=== PATIENT | male | born 1945 | race Caucasian/White ===

== ENCOUNTER 2017-11-12 05:55 | Inpatient (IN) | payer OTHER ==
[~2017-11-12] VITALS: Ht 167.6 cm; Wt 108.4 kg
[~2017-11-12 05:55] MED LIST: BUDE1AER IH; OMEP40EC1 PO
[2017-11-12 05:57] VITALS: BP 159/80
--- NOTE | 2017-11-12 06:09 | NUR ---
Patient ambulated to bed 11. RN evaluating patient at bedside.
--- NOTE | 2017-11-12 06:15 | NUR ---
71Y M BIB FAMILY C/O SOB/CP SINCE 0400 THIS MORNING. PT STATES CP RADIATED THROUGHOUT BODY WITH CHILLS. BREATH SOUNDS ARE WHEEZES BILAT. PT O2SAT 96% RA. PT AAOX4. PT DENIES ANY N/V/D.
--- NOTE | 2017-11-12 07:18 | NUR ---
Pt report given to PETE KU . Transfer of care at this time. Addendum: 11/12/17 at 0832 by [facility] GOT REPORT FROM KINGS RUBIN.
[2017-11-12] MEDS ORDERED: ALBUTEROL SULFATE/IPRATROPIU 3 ML SOL IH ONE (07:20)
[2017-11-12] MEDS ORDERED: NACL 0.9% 500 ML IV ONE (07:20)
--- NOTE | 2017-11-12 07:41 | NUR ---
ASSUMED CARE, PT LAYING DOWN IN BED WITH SOB AND AUDIBLE WHEEZES, AT BEDSIDE. OCCASIONAL CHILD CARE COORDINATOR COUGH HEARD. PT REPORTS INTERMITTENT FEVERS/CHILLS. SEEN AT [facility]RGENT [facility]ARE [facility] FOR SAME THING, RECEIVED MEDS, BUT NOT GETTING ANY BETTER. PT INSTRUCTED TO SIT UPRIGHT TO HELP WITH SOB, MILD DIFFICULTY NOTED. ON RA @96-97%, DR WATKINS IN ROOM FOR EXAM. ORDESR RECEIVED.
[2017-11-12 08:08] LABS: BASOPHILS # (AUTO) 0.3 K/uL (0.00-0.22); BASOPHILS % (AUTO) 2.9 % (0.0-2.0); EOSINOPHILS # (AUTO) 0.1 K/uL (0-0.4); EOSINOPHILS % (AUTO) 0.7 % (0.0-4.0); HEMATOCRIT 44.9 % (36-52); HEMOGLOBIN 15.2 g/dL (12.0-18.0); LYMPHOCYTES # (AUTO) 0.3 K/uL (2.0-11.5); LYMPHOCYTES % (AUTO) 3.5 % (20.5-51.1); MEAN CORPUSCULAR HEMOGLOBIN 31 pg (27-31); MEAN CORPUSCULAR HGB CONC 34 g/dL (33-37); MEAN CORPUSCULAR VOLUME 91 fL (80-94); MONOCYTES # (AUTO) 0.4 K/uL (0.8-1.0); MONOCYTES % (AUTO) 4.9 % (1.7-9.3); NEUTROPHILS # (AUTO) 7.9 K/uL (1.8-7.7); PLATELET COUNT (AUTO) 100 K/uL (140-450); RED BLOOD CELL COUNT(AUTO) 4.91 MIL/uL (4.20-6.10); RED CELL DISTRIBUTION WIDTH 13.5 % (11.6-13.7)
[2017-11-12 08:22] LABS: ANION GAP 11.8 (8-16); CARBON DIOXIDE 27.2 mmol/L (21-32); CHLORIDE 104 mmol/L (98-107); CREATININE 1.1 mg/dL (0.7-1.3); GLUCOSE 113 mg/dL (74-106); SODIUM SERUM 139 mmol/L (136-145); UREA NITROGEN, BLOOD 11 mg/dL (7-18)
[2017-11-12 08:24] LABS: PROTHROMBIN TIME 10.5 secs (10.8-13.4)
--- NOTE | 2017-11-12 08:24 | NUR ---
IV LFUIDS INFUSING WELL, URINE COLLECTED AND SENT
[2017-11-12] MEDS ORDERED: KETOROLAC 30 MG/ML VIAL IVP ONE (08:25)
[2017-11-12] MEDS ORDERED: ASPIRIN 81 MG TAB.CHEW PO ONE (08:25)
[2017-11-12 08:34] LABS: ALBUMIN 3.7 g/dL (3.4-5.0); ASPARTATE AMINOTRANSFERASE 24 U/L (15-37); TOTAL BILIRUBIN 0.6 mg/dL (0.0-1.0)
--- NOTE | 2017-11-12 08:50 | NUR ---
Patient being reevaluated by physician at bedside.
[2017-11-12] MEDS ORDERED: PIPERACILLIN/TAZOBACTAM 3.375 GM in DEXTROSE 5% 50 ML IV ONE (09:20)
[2017-11-12] MEDS ORDERED: PIPERACILLIN/TAZOBACTAM 3.375 GM VIAL IV ONE (09:43)
--- NOTE | 2017-11-12 09:50 | NUR ---
IV ANBX STARTED ORDERED VIA PUMP, WILL MONITOR FOR ANY ADVERSE SIDE EFFCTS. PT REPORTS FEELING BETTER FROM HEADACHE, DENIES ANY CP AT THIS TIME.
--- NOTE | 2017-11-12 10:54 | NUR ---
Haydee kerr in ED - 11/12/17 at 1200 by [facility] WATERY STOOL X 1 EPISODE.
[2017-11-12] MEDS ORDERED: HYDROcodone/APAP 5/325 MG 1 TAB TAB PO PRN (11:05)
[2017-11-12] MEDS ORDERED: ACETAMINOPHEN 325 MG TAB PO PRN (11:05)
[2017-11-12] MEDS ORDERED: LORazepam 2 MG/ML VIAL IVP PRN (11:05)
[2017-11-12] MEDS ORDERED: ONDANSETRON 4 MG/2 ML VIAL IVP PRN (11:05)
--- NOTE | 2017-11-12 11:40 | NUR ---
Patient will be admitted to care of DR SHAW. Admited to ICU . Will go to room. Belongings list completed. Report to .
[2017-11-12] MEDS: HYDROcodone/APAP 5/325 MG 1 TAB TAB PO PRN (11:53)
[2017-11-12 12:00] VITALS: BP 134/83
--- NOTE | 2017-11-12 12:00 | NUR ---
RECEIVED PT FROM ER AT 1140 VIA [employer]. PT IS AWAKE, ALERT AND ORIENTED X4, VERBALLY RESPONSIVE, ABLE TO FOLLOW THE COMMANDS. PT IS ON 2L/M OXYGEN VIA NS,94% O2 SAT,T 100.4, P 94, R 26, BP 130/69. BILATERAL LUNGS SOUND WHEEZING. ACTIVE BOWEL SOUND FROM ALL 4 QUADS. PERIPHERAL LINE ON RIGHT ANTECUBITAL 20G WITH LOCKED. SKIN IS INTACT. INTERMITTENT PRODUCTIVE COUGH NOTED. BILATERAL NARES SWAB FOR MRSA SCREEN. PT COMPLAINS ABOUT PAIN WHEN HE COUGH 8/10. ADMINISTERED PRN NORCO 5/325MG 2 TABS ORDERED, TOLERATED WELL. CALL LIGHT WITHIN THE REACH. ALL SAFETY MEASURE IN PLACE. WILL CONTINUE TO MONITOR.
--- NOTE | 2017-11-12 12:30 | NUR ---
GIVEN SCHEDULED IV ABX AND PRN NORCO 5/325MG 2TAB FOR PAIN AND FEVER,TOLERATED WELL. NO ACUTE DISTRESS NOTED AT THIS TIME.
[2017-11-12] MEDS: methylPREDNISolone SS 40 MG/ML VIAL IVP SCH ×2 (12:57→20:55)
[2017-11-12] MEDS: LEVOFLOXACIN 500 MG/D5W PREMIX 100 ML IV SCH (12:58)
[2017-11-12] MEDS ORDERED: methylPREDNISolone SS 40 MG in WATER STERILE 1 ML IV SCH (13:00)
[2017-11-12] MEDS: IPRATROPIUM 0.02% 0.5 MG/2.5 ML NEBU INH SCH ×2 (13:13→18:58)
[2017-11-12] MEDS: ALBUTEROL 0.083% 2.5 MG/3 ML NEBU INH SCH ×2 (13:13→18:59)
--- NOTE | 2017-11-12 13:30 | NUR ---
ADMINISTERED SCHEDULED IV ABX, TOLERATED WELL. PT'S TEMP 99.4. NO ACUTE DISTRESS NOTED. WILL CONTINUE TO MONITOR.
--- NOTE | 2017-11-12 13:35 | NUR ---
PT RESTING COMFORTABLY. NO SOB OR OTHER ACUTE DISTRESS NOTED AT THIS TIME. VITAL SIGNS STABLE. NO C/O PAIN OR DISCOMFORT. SAFETY PRECAUTIONS IN PLACE. WILL CONTINUE TO MONITOR.
[2017-11-12] MEDS: PROMETH/CODEINE 6.25-10MG/5ML 5 ML UDC PO PRN ×2 (15:07→20:55)
--- NOTE | 2017-11-12 15:10 | NUR ---
PT IS IN ASLEEP. DENIES ANY PAIN. ADMINISTERED COUGH SYRUP, TOLERATED WELL. NO ACUTE DISTRESS NOTED. DENIES ANY PAIN. WILL CONTINUE TO MONITOR.
[2017-11-12 16:00] VITALS: BP 139/86
[2017-11-12 16:28] LABS: APPEARANCE,URINE SL CLOUDY (CLEAR); BILIRUBIN,URINE NEGATIVE (NEGATIVE); BLOOD, URINE 3+ (NEGATIVE); COLOR,URINE YELLOW (YELLOW); LEUKOCYTE ESTERASE ,URINE NEGATIVE (NEGATIVE); NITRITE, URINE NEGATIVE (NEGATIVE); PH,URINE 6.5 (5.0-9.0); UGLUCOSE NEGATIVE (NEGATIVE)
[2017-11-12] MEDS ORDERED: PANTOPRAZOLE 40 MG TABEC PO SCH (16:30)
[2017-11-12] MEDS ORDERED: NON-FORMULARY ITEM (Omeprazole* (Prilosec*) 20 MG) PO SCH (16:30)
--- NOTE | 2017-11-12 16:30 | NUR ---
ADMINISTERED SCHEDULED MEDICATION ORDERED, TOLERATED WELL. NO ACUTE DISTRESS NOTED. ALL SAFETY PRECAUTION IN PLACE. CALL LIGHT WITHIN REACH. WILL CONTINUE TO MONITOR.
[2017-11-12 16:38] LABS: RBC,URINE >100 /HPF (0-5); WBC,URINE 0-5 (RARE) /HPF (0-5)
--- NOTE | 2017-11-12 18:00 | NUR ---
TRANSFERRED TO [address] VIA W/C. REPORT GIVEN TO KINGS RODRIGUEZ. PT'S VS IS STABLE, NO ACUTE DISTRESS NOTED DURING TRANSFER. Addendum: 11/12/17 at 1855 by Domonique Higuera RN NOT [facility] [place] [place]
--- NOTE | 2017-11-12 18:01 | NUR ---
PATIENT TRANSFERRED FROM ICU TO TELE. PATIENT SITTING UP FOR DINNER. NO S/S OF ACUTE DISTRESS. ON O2 2L NC.
--- NOTE | 2017-11-12 18:59 | NUR ---
PATIENT TRANSFERRED FROM ICU AND HIS NAME AND MEDICATIONS ARE NOT IN [facility] YET
--- NOTE | 2017-11-12 19:10 | NUR ---
SBAR REPORT GIVEN TO RN AT BEDSIDE. NO S/S OF ACUTE DISTRESS NOTED. AT BEDSIDE.
--- NOTE | 2017-11-12 19:11 | NUR ---
RECEIVED HANDOFF REPORT FROM AM RN. PATIENT A&OX4. PATIENT DENIES PAIN.PATIENT STATES HAVING COUGH AND A HEADACHE. WILL MEDICATE ORDERED. IV SITE PATENT AND INTACT. PATIENT HAS TELE BOX IN PLACE. PATIENT ON 2L O2 NC. NO SIGNS OR SYMPTOMS OF ACUTE DISTRESS NOTED. AT BEDSIDE. WILL CONTINUE TO MONITOR.
--- NOTE | 2017-11-12 20:56 | NUR ---
PM MEDS GIVEN WITH EDUCATION. PATIENT VERBALIZED UNDERSTANDING. NO SIGNS OR SYMPTOMS OF ACUTE DISTRESS NOTED. CALL LIGHT WITHIN REACH. WILL CONTINUE TO MONITOR.
[2017-11-12] MEDS ORDERED: ALBUTEROL 0.083% 2.5 MG/3 ML NEBU INH PRN (21:50)
[2017-11-12] MEDS ORDERED: IPRATROPIUM 0.02% 0.5 MG/2.5 ML NEBU INH PRN (21:50)
[2017-11-13] VITALS: BP 121/71
[2017-11-13] MEDS: HYDROcodone/APAP 5/325 MG 1 TAB TAB PO PRN (00:41)
[2017-11-13] MEDS: IPRATROPIUM 0.02% 0.5 MG/2.5 ML NEBU INH SCH ×4 (00:46→18:45)
[2017-11-13] MEDS: ALBUTEROL 0.083% 2.5 MG/3 ML NEBU INH SCH ×4 (00:46→18:45)
[2017-11-13] MEDS ORDERED: NACL 0.9% 1,000 ML IV SCH (01:00)
[2017-11-13] MEDS: PROMETH/CODEINE 6.25-10MG/5ML 5 ML UDC PO PRN (05:45)
[2017-11-13] MEDS: PANTOPRAZOLE 40 MG TABEC PO SCH (05:46)
[2017-11-13] MEDS: methylPREDNISolone SS 40 MG/ML VIAL IVP SCH ×3 (05:46→20:05)
[2017-11-13 06:47] LABS: BASOPHILS % (AUTO) 0.5 % (0.0-2.0); EOSINOPHILS % (AUTO) 0.2 % (0.0-4.0); HEMATOCRIT 39.7 % (36-52); HEMOGLOBIN 13.9 g/dL (12.0-18.0); LYMPHOCYTES # (AUTO) 0.6 K/uL (2.0-11.5); LYMPHOCYTES % (AUTO) 8.7 % (20.5-51.1); MEAN CORPUSCULAR HEMOGLOBIN 32 pg (27-31); MEAN CORPUSCULAR HGB CONC 35 g/dL (33-37); MEAN CORPUSCULAR VOLUME 91 fL (80-94); MONOCYTES # (AUTO) 0.2 K/uL (0.8-1.0); MONOCYTES % (AUTO) 2.9 % (1.7-9.3); NEUTROPHILS # (AUTO) 6.6 K/uL (1.8-7.7); NEUTROPHILS % (AUTO) 87.7 % (42.2-75.2); PLATELET COUNT (AUTO) 94 K/uL (140-450); RED BLOOD CELL COUNT(AUTO) 4.36 MIL/uL (4.20-6.10); RED CELL DISTRIBUTION WIDTH 13.1 % (11.6-13.7); WHITE BLOOD COUNT (AUTO) 7.4 K/uL (4.8-10.8)
[2017-11-13 07:03] LABS: ALBUMIN 3.1 g/dL (3.4-5.0); ANION GAP 11.8 (8-16); ASPARTATE AMINOTRANSFERASE 34 U/L (15-37); CARBON DIOXIDE 25.5 mmol/L (21-32); CHLORIDE 104 mmol/L (98-107); GLUCOSE 149 mg/dL (74-106); MAGNESIUM 2.1 mg/dL (1.8-2.4); POTASSIUM 4.3 mmol/L (3.5-5.1); SODIUM SERUM 137 mmol/L (136-145); TOTAL BILIRUBIN 0.3 mg/dL (0.0-1.0); UREA NITROGEN, BLOOD 16 mg/dL (7-18)
--- NOTE | 2017-11-13 07:05 | NUR ---
BREATHING TX ADMINISTERED PT IS RESTING IN BED AT THIS TIME. PT IS NOT SOB AND NOT IN RESPIRATORY DISTRESS. WILL CONTINUE TO MONITOR.
--- NOTE | 2017-11-13 07:19 | NUR ---
ENDORSED PLAN OF CARE TO AM RN. PATIENT IN STABLE CONDITION.
--- NOTE | 2017-11-13 07:25 | NUR ---
ENDORSEMENT RECEIVED FROM RESOURCE TEACHER NURSE. PATIENT IS SLEEPING, EASILY AROUSABLE BY NAME. RESPIRATION EVEN, UNLABOR. SKIN DRY AND WARM. IV PATENT AND INTACT. DENIED PAIN, SOB AT THIS TIME. ON 2L NC. PLAN OF CARE WAS DISCUSSED WITH PATIENT. BED AT LOW POSITION, SIDES RAILS UP. CALL LIGHT WITHIN REACH.
[2017-11-13 08:00] VITALS: BP 113/72
[2017-11-13] MEDS: ENOXAPARIN 40 MG/0.4 ML SYR SUBQ SCH (08:30)
--- NOTE | 2017-11-13 09:12 | NUR ---
PATIENT HAS BEEN SCREENED AND CATEGORIZED MODERATE NUTRITION RISK. PATIENT WILL BE SEEN WITHIN 3-5 DAYS OF ADMISSION. 11/14/17-11/16/[address]
[2017-11-13] MEDS ORDERED: ATRN INH (09:56)
[2017-11-13] MEDS ORDERED: PRED10TA5 PO (09:56)
[2017-11-13] MEDS ORDERED: DOXY-441 PO (09:56)
[2017-11-13] MEDS ORDERED: CODE118S2 PO (09:56)
[2017-11-13] MEDS ORDERED: ALBU-71 NEB (09:56)
--- NOTE | 2017-11-13 10:30 | NUR ---
PATIENT'S LUNG SOUND WHEEZES ON EXPIRATION THROUGHOUT. CALLED AND NOTIFIED RT FOR BREATHING TREATMENT.
[2017-11-13] MEDS: PROMETH/CODEINE 6.25-10MG/5ML 5 ML UDC PO SCH ×2 (11:45→17:40)
--- NOTE | 2017-11-13 12:19 | NUR ---
RECEIVED A CALL FROM CUONG FROM [facility], [phone]. SHE SAID THE NEBULIZER WILL BE HANDLED BY [employer] [facility] BY RINA.
--- NOTE | 2017-11-13 12:30 | NUR ---
PATIENT IS AWAKE, ALERT. RESPIRATION EVEN, UNLABOR. DENIED PAIN, SOB AT THIS TIME. CALL LIGHT WITHIN REACH. WILL CONTINUE TO MONITOR
[2017-11-13] MEDS: LEVOFLOXACIN 500 MG/D5W PREMIX 100 ML IV SCH (12:55)
[2017-11-13 16:00] VITALS: BP 125/70
--- NOTE | 2017-11-13 16:00 | NUR ---
PATIENT IS AWAKE, ALERT. RESPIRATION EVEN, UNLABOR. DENIED PAIN, SOB. VS WAS TAKEN. CALL LIGHT WITHIN REACH
--- NOTE | 2017-11-13 18:00 | NUR ---
PATIENT IS AWAKE, ALERT. RESPIRATION EVEN, UNLABOR. LUNGS SOUND CLEAR. DENIED PAIN, SOB. IV PATENT AND INTACT. CALL LIGHT WITHIN REACH
--- NOTE | 2017-11-13 19:23 | NUR ---
ENDORSEMENT IS GIVEN TO THE SACK SORTER NURSE. PATIENT IS STABLE AT THIS TIME
--- NOTE | 2017-11-13 19:24 | NUR ---
RECEIVED HANDOFF REPORT FROM AM RN. PATIENT A&OX4. PATIENT DENIES PAIN. PATIENT IV SITE PATENT AND INTACT. SALINE LOCK. NO SIGNS OR SYMPTOMS OF ACUTE DISTRESS NOTED. RT IN TO SEE PATIENT. FAMILY AT BEDSIDE. CALL LIGHT WITHIN REACH. WILL CONTINUE TO MONITOR.
--- NOTE | 2017-11-13 20:33 | NUR ---
PM MEDS GIVEN WITH EDUCATION. PATIENT VERBALIZED UNDERSTANDING. CALL LIGHT WITHIN REACH. WILL CONTINUE TO MONITOR.
[2017-11-14] VITALS: BP 135/82
[2017-11-14] MEDS: PROMETH/CODEINE 6.25-10MG/5ML 5 ML UDC PO SCH ×2 (00:12→05:40)
[2017-11-14] MEDS: IPRATROPIUM 0.02% 0.5 MG/2.5 ML NEBU INH SCH ×2 (01:31→07:02)
[2017-11-14] MEDS: ALBUTEROL 0.083% 2.5 MG/3 ML NEBU INH SCH ×2 (01:31→07:02)
[2017-11-14] MEDS ORDERED: PNEUMOCOCCAL VACCINE 23 MCG/0.5 ML VIAL IMVAC PRN (01:35)
--- NOTE | 2017-11-14 01:42 | NUR ---
PATIENT RESTING IN BED. PATIENT DENIES PAIN. NO SIGNS OR SYMPTOMS OF ACUTE DISTRESS NOTED. CALL LIGHT WITHIN REACH. WILL CONTINUE TO MONITOR.
[2017-11-14] MEDS: methylPREDNISolone SS 40 MG/ML VIAL IVP SCH (05:40)
[2017-11-14] MEDS: PANTOPRAZOLE 40 MG TABEC PO SCH (05:41)
--- NOTE | 2017-11-14 05:42 | NUR ---
HEATING SYSTEMS INSTALLER MEDS GIVEN WITH EDUCATION. PATIENT VERBALIZED UNDERSTANDING. NO SIGNS OR SYMPTOMS OF ACUTE DISTRESS NOTED. CALL LIGHT WITHIN REACH. WILL CONTINUE TO MONITOR.
--- NOTE | 2017-11-14 07:15 | NUR ---
ENDORSED PLAN OF CARE TO AM RN. PATIENT IN STABLE CONDITION
--- NOTE | 2017-11-14 07:16 | NUR ---
RECEIVED REPORT FROM SONG AND DANCE PERFORMER NURSE VALERIE AT BEDSIDE FOR CONTINUITY OF CARE. PT IS AWAKE AND ORIENTED. INTRODUCED SELF AND UPDATED BOARD. PT IS SITTING UP IN BED. NO SIGNS OF DISTRESS. DENIES PAIN. IN STABLE CONDITION.
--- NOTE | 2017-11-14 07:21 | NUR ---
RECIVED PT ON 3LPM NC PT AWAKE ALERT WILL CONTINUE TO MONITOR PT
[2017-11-14 08:00] VITALS: BP 131/82
[2017-11-14] MEDS: ENOXAPARIN 40 MG/0.4 ML SYR SUBQ SCH (08:56)
--- NOTE | 2017-11-14 11:10 | NUR ---
PT D/C'D TO GO HOME. GAVE D/C FORMS, INSTRUCTION, RX, LABS, AND FOLLOW UP APPOINTMENT. PT VERBALIZED UNDERSTANDING AND SIGNED FORMS. D/C'D IV FROM LEFT FA 22G. IV CATHETER TIP INTACT. APPLIED DRESSING AND PRESSURE TO SITE. NO BLEEDING NOTED. REMOVED ID BAND. PT CHANGED IN OWN CLOTHES AND LEFT WITH ALL PERSONAL BELONGINGS AND RX. LEFT UNIT VIA AMBULATION WITH STEADY GAIT ACCOMPANIED BY . LEFT IN STABLE CONDITION.
--- NOTE | 2017-11-18 10:26 | NUR ---
PER REQUEST OF CUONG FROM [facility], FAXED DC SUMMARY AND DC MEDICATION RECONCILIATION LIST TO HER AT [phone] PHONE [phone]
== END 2017-11-14 11:10 | disposition home health service (06) | DRG 190 ==
LOC: MED 05:55 → MIC 11:08 → MTU 18:00
PROVIDERS: ADMIT Hospitalist; ATTEND Hospitalist
PROC: 3E0234Z Introduction of Serum, Toxoid and Vaccine into Muscle, Percutaneous Approach (ICD-10-PCS; principal; 2017-11-14)
DX: J44.0 Chronic obstructive pulmonary disease with (acute) lower respiratory infection (principal); J18.1 Lobar pneumonia, unspecified organism; J44.1 Chronic obstructive pulmonary disease with (acute) exacerbation; E66.9 Obesity, unspecified; F17.210 Nicotine dependence, cigarettes, uncomplicated; J40 Bronchitis, not specified as acute or chronic; Z68.38 Body mass index [BMI] 38.0-38.9, adult; Z23 Encounter for immunization; Z71.6 Tobacco abuse counseling
CPT/HCPCS: 36415; 71010; 71020; 80053; 81001; 83605; 83735; 83880; 84484; 85025; 85610; 85730; 87040; 87081; 90732; 94640; 96361; 96365; 96375; 99285; J0696; J1650; J1885; J1956; J2543; J2920; J7030; J7060; J7613; J7620; J7644; Q0092

== ENCOUNTER 2019-09-29 15:30 | Emergency (ER) | payer OTHER ==
[~2019-09-29] VITALS: Ht 167.6 cm; Wt 110.4 kg
[~2019-09-29 15:30] MED LIST changes: +ALBU-71 NEB; +ATRN INH; +CODE118S2 PO; +DOXY-441 PO; -OMEP40EC1 PO; +OMEP40EC24 PO; +PRED10TA5 PO
[2019-09-29 15:39] VITALS: BP 146/95
--- NOTE | 2019-09-29 15:47 | NUR ---
PT AMBULATED TO BED 4.
--- NOTE | 2019-09-29 15:50 | NUR ---
Dr. Ross is evaluating the patient at bedside.
[2019-09-29] MEDS ORDERED: NACL 0.9% 1,000 ML IV ONE (15:55)
[2019-09-29] MEDS ORDERED: KETOROLAC 30 MG/ML VIAL IVP ONE (15:55)
--- NOTE | 2019-09-29 15:57 | NUR ---
PATIENT PRESENTS TO ED FROM URGENT CARE FOR RT TESTICULAR PAIN X1 DAY. PT COMPLAINS OF 9/10 PAIN, MILDLY RELIEVED BY TYLENOL. PT ALSO EXPERIENCING FEVER, GIVEN TYLENOL AT 1505 IN URGENT CARE. PT FEBRILE AT 102.7 AT THIS TIME. PATIENT POSITIONED FOR COMFORT; HOB ELEVATED; BEDRAILS UP X2; BED DOWN. ER MD SAW PATIENT. MEDRX:BPH RX:TAMSULOSIN
--- NOTE | 2019-09-29 15:59 | NUR ---
CT AT BEDSIDE
[2019-09-29 16:38] LABS: BASOPHILS # (AUTO) 0.1 K/uL (0.00-0.22); BASOPHILS % (AUTO) 0.5 % (0.0-2.0); EOSINOPHILS # (AUTO) 0.1 K/uL (0-0.4); EOSINOPHILS % (AUTO) 0.4 % (0.0-4.0); HEMATOCRIT 46.3 % (36-52); HEMOGLOBIN 15.6 g/dL (12.0-18.0); LYMPHOCYTES # (AUTO) 1.1 K/uL (2.0-11.5); LYMPHOCYTES % (AUTO) 8.3 % (20.5-51.1); MEAN CORPUSCULAR HEMOGLOBIN 31 pg (27-31); MEAN CORPUSCULAR HGB CONC 34 g/dL (33-37); MONOCYTES # (AUTO) 1.2 K/uL (0.8-1.0); NEUTROPHILS # (AUTO) 11.1 K/uL (1.8-7.7); NEUTROPHILS % (AUTO) 81.8 % (42.2-75.2); PLATELET COUNT (AUTO) 132 K/uL (140-450); RED BLOOD CELL COUNT(AUTO) 5.09 MIL/uL (4.20-6.10); RED CELL DISTRIBUTION WIDTH 13.9 % (11.6-13.7); WHITE BLOOD COUNT (AUTO) 13.6 K/uL (4.8-10.8)
[2019-09-29 16:54] LABS: ANION GAP 12.4 (8-16); CARBON DIOXIDE 25.6 mmol/L (21-32); CHLORIDE 105 mmol/L (98-107); CREATININE 0.9 mg/dL (0.7-1.3); GLUCOSE 84 mg/dL (74-106); SODIUM SERUM 139 mmol/L (136-145); UREA NITROGEN, BLOOD 15 mg/dL (7-18)
[2019-09-29 17:00] LABS: ALBUMIN 3.8 g/dL (3.4-5.0); ASPARTATE AMINOTRANSFERASE 20 U/L (15-37); TOTAL BILIRUBIN 0.5 mg/dL (0.0-1.0)
[2019-09-29] MEDS ORDERED: AZITHROMYCIN 250 MG TAB PO ONE (17:40)
[2019-09-29] MEDS ORDERED: ACETAMINOPHEN EXTRA STRENGTH 500 MG TAB PO ONE (17:40)
[2019-09-29] MEDS ORDERED: cefTRIAXone 250 MG in LIDOCAINE MPF 1% 0.9 ML IM ONE (17:40)
[2019-09-29 17:49] LABS: APPEARANCE,URINE CLEAR (CLEAR); BLOOD, URINE NEGATIVE (NEGATIVE); COLOR,URINE YELLOW (YELLOW); UGLUCOSE NEGATIVE (NEGATIVE)
[2019-09-29 17:50] LABS: BILIRUBIN,URINE NEGATIVE (NEGATIVE); LEUKOCYTE ESTERASE ,URINE TRACE (NEGATIVE); NITRITE, URINE NEGATIVE (NEGATIVE)
[2019-09-29 17:52] LABS: RBC,URINE NONE SEEN /HPF (0-5); WBC,URINE 0-5 /HPF (0-5)
--- NOTE | 2019-09-29 18:15 | NUR ---
IV removed, catheter intact and site benign. Applied folded 4x4 gauze and tape to stop bleeding.
[2019-09-29 18:22] VITALS: BP 141/74
--- NOTE | 2019-09-29 18:22 | NUR ---
Patient discharged with v/s stable. Written and verbal after care instructions given and explained. Patient alert, oriented and verbalized understanding of instructions. Ambulatory with steady gait. All questions addressed prior to discharge. ID band removed. Patient advised to follow up with PMD. Rx of DOXYXYLINE AND TYLENOL given. Patient educated on indication of medication including possible reaction and side effects. Opportunity to ask questions provided and answered.
[2019-10-01 12:07] LABS: CHLAMYDIA TRACHOMATIS AMP DNA Equivocal (Negative)
== END 2019-09-29 18:19 | disposition home or self-care (01) ==
LOC: MED 15:30
DX: N45.2 Orchitis (principal); J44.9 Chronic obstructive pulmonary disease, unspecified; Z79.899 Other long term (current) drug therapy
CPT/HCPCS: 36415; 71045; 76870; 80053; 81001; 83605; 85025; 87040; 87086; 87491; 87804; 93005; 96372; 96374; 99284; J0696; J1885; J2001; J7030; Q0092

== ENCOUNTER 2019-10-01 10:29 | Inpatient (IN) | payer OTHER ==
[~2019-10-01] VITALS: Ht 170.2 cm; Wt 110.2 kg
[2019-10-01 10:31] VITALS: BP 153/79
--- NOTE | 2019-10-01 10:38 | NUR ---
PATIENT AMBULATED TO BED 4 AT THIS TIME.
--- NOTE | 2019-10-01 10:45 | NUR ---
73/M C/O PENILE PAIN/SWELLING WITH FEVER X YESTERDAY WAS SEEN HERE LAST NIGHT AND DIGNOSED WITH ORCHITIS AND GIVEN DOXCYCLINE AND TYLENOL PATIENT STATES SWELLING HAS WORSENED EVEN THOUGH HE HAS BEEN TAKING MEDICATIONS. STATES LAST NIGHT HAD SUBJECTIVE FEVER WITH DIAPHORESIS. NOTICED FOUL SMELLING PUS DRAINING FROM RT TESTICLE. DENIES N/V, ABD PAIN. LARGE RT TESTICLE NOTED WITH AN OPEN LESION ON POSTERIOR LESS THAN [id number] WITHOUT ACTIVE DRAINAGE AT THIS TIME. PMH- COPD, BPH
[2019-10-01] MEDS ORDERED: NACL 0.9% 1,000 ML IV SCH (11:24)
[2019-10-01] MEDS ORDERED: NACL 0.9% 1,000 ML IV ONE (11:24)
[2019-10-01] MEDS ORDERED: GENTAMICIN 80 MG in DEXTROSE 5% 100 ML IV ONE (11:25)
[2019-10-01] MEDS ORDERED: KETOROLAC 30 MG/ML VIAL IVP ONE (11:25)
[2019-10-01] MEDS ORDERED: MORPHINE SULFATE 2 MG/ML SYR IVP ONE (11:25)
[2019-10-01] MEDS ORDERED: CLINDAMYCIN 900 MG in DEXTROSE 5% 100 ML IV ONE (11:25)
[2019-10-01] MEDS ORDERED: GENTAMICIN 80 MG/2 ML VIAL ONE (11:43)
[2019-10-01] MEDS ORDERED: CLINDAMYCIN 900 MG/6 ML VIAL IV ONE (11:44)
[2019-10-01 12:24] LABS: BASOPHILS % (AUTO) 0.3 % (0.0-2.0); EOSINOPHILS # (AUTO) 0.1 K/uL (0-0.4); HEMATOCRIT 43.3 % (36-52); HEMOGLOBIN 14.4 g/dL (12.0-18.0); LYMPHOCYTES # (AUTO) 1.1 K/uL (2.0-11.5); LYMPHOCYTES % (AUTO) 10.9 % (20.5-51.1); MEAN CORPUSCULAR HEMOGLOBIN 31 pg (27-31); MEAN CORPUSCULAR HGB CONC 33 g/dL (33-37); MEAN CORPUSCULAR VOLUME 92.3 fL (80-94); MONOCYTES % (AUTO) 10.4 % (1.7-9.3); NEUTROPHILS # (AUTO) 7.5 K/uL (1.8-7.7); NEUTROPHILS % (AUTO) 77.4 % (42.2-75.2); PLATELET COUNT (AUTO) 122 K/uL (140-450); RED CELL DISTRIBUTION WIDTH 14.4 % (11.6-13.7); WHITE BLOOD COUNT (AUTO) 9.8 K/uL (4.8-10.8)
[2019-10-01 12:28] LABS: BILIRUBIN,URINE NEGATIVE (NEGATIVE); BLOOD, URINE NEGATIVE (NEGATIVE); COLOR,URINE YELLOW (YELLOW); LEUKOCYTE ESTERASE ,URINE TRACE (NEGATIVE); NITRITE, URINE NEGATIVE (NEGATIVE); PH,URINE 6.5 (5.0-9.0); UGLUCOSE NEGATIVE (NEGATIVE)
--- NOTE | 2019-10-01 12:30 | NUR ---
PT TO CT SCAN VIA W/C.
[2019-10-01 12:56] LABS: ANION GAP 9.6 (8-16); CARBON DIOXIDE 27.1 mmol/L (21-32); CHLORIDE 106 mmol/L (98-107); CREATININE 0.9 mg/dL (0.7-1.3); GLUCOSE 110 mg/dL (74-106); POTASSIUM 3.7 mmol/L (3.5-5.1); SODIUM SERUM 139 mmol/L (136-145); TOTAL BILIRUBIN 0.6 mg/dL (0.0-1.0); UREA NITROGEN, BLOOD 14 mg/dL (7-18)
[2019-10-01 12:57] LABS: ALBUMIN 3.2 g/dL (3.4-5.0); AMYLASE 52 U/L (25-115); ASPARTATE AMINOTRANSFERASE 23 U/L (15-37); LIPASE 139 U/L (73-393)
[2019-10-01 12:59] LABS: APPEARANCE,URINE HAZY (CLEAR)
[2019-10-01 13:02] LABS: RBC,URINE 0 /HPF (0-5); WBC,URINE 0-5 /HPF (0-5)
--- NOTE | 2019-10-01 13:48 | NUR ---
PT UNSURE ABOUT MED NAMES AND DOSE. WILL SEND FAMILY MEMBER HOME TO BRING BACK LIST.
[2019-10-01] MEDS ORDERED: TAMS0.4C96 PO (14:58)
--- NOTE | 2019-10-01 16:00 | NUR ---
Patient will be admitted to care of DR. MORENO. Admited to MED SURG. Will go to room 126B. Belongings list completed. Report to SORIN KU.
--- NOTE | 2019-10-01 16:00 | NUR ---
RECEIVED PT FROM ED NURSE NATALIE, PT IS AWAKE AND ALERT, NO S/S OF ACUTE DISTRESS, PT IS AMBULATORY AND ABLE TO MAKE NEEDS KNOWN. PT IS MOSTLY PASHTO SPEAKING. NO C/O PAIN AT THIS TIME. PT IS ON ROOM AIR. SMALL AREA OF OPEN SKIN NOTED ON THE L SIDE SCROTUM. IV NOTED L AC 22 G. LAST BM 10/01. PT HAD THE FLU VACCINE AUGUST 2019, AND WOULD LIKE THE PNA VACCINE UPON DC. MRSA NASAL SWAB TAKEN.
[2019-10-01 16:15] VITALS: BP 127/75
[2019-10-01] MEDS ORDERED: ZOLPIDEM 5 MG TAB PO PRN (17:00)
[2019-10-01] MEDS ORDERED: ALBUTEROL 0.083% 2.5 MG/3 ML NEBU INH PRN (17:00)
[2019-10-01] MEDS ORDERED: ONDANSETRON 4 MG/2 ML VIAL IVP PRN (17:00)
[2019-10-01] MEDS ORDERED: POTASSIUM CHLORIDE 10 MEQ TABER PO PRN (17:00)
[2019-10-01] MEDS ORDERED: ALUMINUM HYD/MAG/SIMETHICONE 30 ML UDC PO PRN (17:00)
[2019-10-01] MEDS ORDERED: MAGNESIUM OXIDE 400 MG TAB PO PRN (17:00)
[2019-10-01] MEDS ORDERED: ACETAMINOPHEN 325 MG TAB PO PRN (17:00)
[2019-10-01] MEDS ORDERED: DOCUSATE SODIUM 250 MG GELCAP PO PRN (17:00)
[2019-10-01] MEDS ORDERED: MAG SULF 2000 MG/WATER PREMIX 50 ML IV PRN (17:00)
[2019-10-01] MEDS ORDERED: SODIUM PHOSPHATE 118 ML ENEM RC PRN (17:00)
[2019-10-01] MEDS ORDERED: LORazepam 2 MG/ML VIAL IVP PRN (17:00)
[2019-10-01] MEDS ORDERED: IPRATROPIUM 0.02% 0.5 MG/2.5 ML NEBU INH PRN (17:00)
[2019-10-01] MEDS ORDERED: BISACODYL 10 MG SUPP RC PRN (17:00)
[2019-10-01] MEDS ORDERED: guaiFENesin DM 200/20 MG-10 ML 10 ML UDC PO PRN (17:00)
[2019-10-01] MEDS ORDERED: cloNIDine 0.1 MG TAB PO PRN (17:00)
[2019-10-01] MEDS ORDERED: diphenhydrAMINE 50 MG/ML VIAL IVP PRN (17:00)
[2019-10-01] MEDS ORDERED: ACETAMINOPHEN 650 MG SUPP RC PRN (17:00)
[2019-10-01] MEDS ORDERED: HYDROcodone/APAP 5/325 MG 1 TAB TAB PO PRN ×2 (17:00)
--- NOTE | 2019-10-01 18:30 | NUR ---
SCROTUM ANAEROBIC CULTURE SWABBED AND TAKEN TO LAB
[2019-10-01] MEDS ORDERED: CLINDAMYCIN 600 MG/4 ML VIAL ONE (19:03)
[2019-10-01] MEDS: CLINDAMYCIN 600 MG in DEXTROSE 5% 50 ML IV SCH (19:13)
--- NOTE | 2019-10-01 19:15 | NUR ---
IV CLEOCIN INFUSING AT THIS TIME
--- NOTE | 2019-10-01 19:25 | NUR ---
PT ENDORSED TO DINKEY ENGINE FIRER/FIREMAN NURSE IN STABLE CONDITION
--- NOTE | 2019-10-01 19:26 | NUR ---
RECEIVED PT ON BED, AAOX4, ABLE TO MAKE NEEDS KNOWN, TOLERABLE PAIN AT THIS TIME, WILL CALL WHEN PAIN GET WORST, IV CLEOCIN INFUSING WELL, PLAN OF CARE DISCUSSED, SAFETY MEASURES IN PLACE, CALL LIGHT WITHIN REACH.
[2019-10-01] MEDS: MORPHINE SULFATE 2 MG/ML SYR IVP PRN (20:50)
--- NOTE | 2019-10-01 20:50 | NUR ---
PT AMBULATED TO BR WITH STEADY GAIT, VOIDED FREELY, PT COMPLAINING OF PAIN, MEDICATED PRN WITH MORPHINE IVP, ALL NEEDS ATTENDED.
[2019-10-01] MEDS ORDERED: NON-FORMULARY ITEM (Budesonide/Formoterol Fumarate* (Symbicort 160-4.5 Mcg Inhaler*) 2 PUF IH SCH (21:00)
--- NOTE | 2019-10-01 21:04 | NUR ---
PT RECEIVED ON RA WITH SP02 95% AND CLEAR BREATH SOUNDS. NO RESPIRATORY DISTRESS NOTED. PRN TX NOT GIVEN. WILL CONTINUE TO MONITOR PT
--- NOTE | 2019-10-01 22:30 | NUR ---
ROUNDS MADE, SEEN PT SLEEPING, NO SIGNS OF DISTRESS, MONITORED CLOSELY.
[2019-10-02] VITALS: BP 125/67
[2019-10-02] MEDS ORDERED: CLINDAMYCIN 600 MG/4 ML VIAL ONE ×2 (00:05→06:25)
[2019-10-02] MEDS: CLINDAMYCIN 600 MG in DEXTROSE 5% 50 ML IV SCH ×4 (00:26→17:27)
--- NOTE | 2019-10-02 00:30 | NUR ---
PT SLEEPING, EASILY AROUSABLE, VITAL SIGNS STABLE, DENIES ANY PAIN, DUE CLEOCIN IVPB ADMINISTERED, CONTINUE TO MONITOR CLOSELY.
--- NOTE | 2019-10-02 03:20 | NUR ---
ROUNDS MADE, SEEN PT SLEEPING, NO SIGNS OF PAIN, IVF INFUSING WELL, MONITORED CLOSELY.
--- NOTE | 2019-10-02 06:46 | NUR ---
PATIENT HAS BEEN SCREENED AND CATEGORIZED LOW NUTRITION RISK. PATIENT WILL BE SEEN WITHIN 7 DAYS OF ADMISSION. 10/08/19 ALBERTA OLIVAS MS, RDN
--- NOTE | 2019-10-02 07:24 | NUR ---
PT AWAKE, NO SIGNS OF DISTRESS, REPORT GIVEN TO KINGS ABDULLAHI FOR CONTINUITY OF CARE.
--- NOTE | 2019-10-02 07:41 | NUR ---
RECEIVED BEDSIDE REPORT FROM PM RN PT APPEARS STABLE AND IN NO APPARENT DISTRESS. ALL SAFETY MEASURES ARE IN PLACE WILL CONTINUE TO MONITOR.
[2019-10-02] MEDS: TAMSULOSIN 0.4 MG CAP PO SCH (08:01)
[2019-10-02] MEDS: MORPHINE SULFATE 2 MG/ML SYR IVP PRN (08:02)
[2019-10-02 08:45] VITALS: BP 122/83
--- NOTE | 2019-10-02 09:13 | NUR ---
FREQUENT ROUNDING ON PT PT APPEARS STABLE AND IN NO APPARENT DISTRESS. ALL SAFETY MEASURES ARE IN PLACE WILL CONTINUE TO MONITOR.
--- NOTE | 2019-10-02 11:05 | NUR ---
FREQUENT ROUNDING ON PT PT APPEARS STABLE AND IN NO APPARENT DISTRESS. ALL SAFETY MEASURES ARE IN PLACE WILL CONTINUE TO MONITOR.
--- NOTE | 2019-10-02 11:06 | NUR ---
FREQUENT ROUNDING ON PT PT APPEARS STABLE AND IN NO APPARENT DISTRESS. ALL SAFETY MEASURES ARE IN PLACE WILL CONTINUE TO MONITOR.
--- NOTE | 2019-10-02 13:05 | NUR ---
FREQUENT ROUNDING ON PT PT APPEARS STABLE AND IN NO APPARENT DISTRESS. ALL SAFETY MEASURES ARE IN PLACE
--- NOTE | 2019-10-02 15:31 | NUR ---
FREQUENT ROUNDING ON PT PT APPEARS STABLE ALL SAFETY MEASURES ARE IN PLACE
[2019-10-02 16:52] VITALS: BP 131/75
--- NOTE | 2019-10-02 19:41 | NUR ---
ENDORSED PT TO PM RN PT APPEARS STABLE AND IN NO APPARENT DISTRESS. ALL SAFETY MEASURES ARE IN PLACE
--- NOTE | 2019-10-02 19:42 | NUR ---
RECEIVED ENDORSEMENT FROM AM SHIFT NURSE. PATIENT ALERT AND ORIENTED X 3. ABLE TO MAKE NEEDS KNOWN. PASHTO SPEAKING. NO APPARENT DISTRESS NOTED. WITH LEFT AC 22G RUNNING WITH IVF. BED ON LOW POSITION. WILL CONTINUE TO MONITOR.
--- NOTE | 2019-10-02 21:01 | NUR ---
PT RECEIVED ON RA WITH SP02 93% AND CLEAR BREATH SOUNDS. NO RESPIRATORY DISTRESS NOTED. PRN TX NOT GIVEN. PT INFORMED TO CALL RN IF EXPERIENCING SOB. WILL CONTINUE TO MONITOR PT
--- NOTE | 2019-10-02 21:40 | NUR ---
PATIENT ASLEEP IN BED. VISIBLE CHEST RISE AND FALL NOTED. NO APPARENT DISTRESS NOTED. WILL CONTINUE TO MONITOR.
--- NOTE | 2019-10-02 23:35 | NUR ---
PATIENT ASLEEP IN BED. VISIBLE CHEST RISE AND FALL NOTED. BED ON LOW POSITION. CALL LIGHT WITHIN REACH. NO APPARENT DISTRESS NOTED. WILL CONTINUE TO MONITOR.
[2019-10-03] VITALS: BP 123/64
[2019-10-03] MEDS: CLINDAMYCIN 600 MG in DEXTROSE 5% 50 ML IV SCH ×3 (00:49→13:48)
--- NOTE | 2019-10-03 01:30 | NUR ---
PATIENT ASLEEP IN BED. NO DISTRESS NOTED. BED ON LOW POSITION. WILL CONTINUE TO MONITOR.
--- NOTE | 2019-10-03 03:25 | NUR ---
PATIENT ASLEEP IN BED. NO APPARENT DISTRESS NOTED. WILL CONTINUE TO MONITOR.
--- NOTE | 2019-10-03 05:20 | NUR ---
PATIENT AWAKE IN BED, RESTING. NO APPARENT DISTRESS NOTED. BED ON LOW POSITION. CALL LIGHT WITHIN REACH. WILL CONTINUE TO MONITOR.
--- NOTE | 2019-10-03 06:54 | NUR ---
PATIENT AWAKE IN BED, RESTING. NO APPARENT DISTRESS NOTED. WILL CONTINUE TO MONITOR.
--- NOTE | 2019-10-03 07:20 | NUR ---
ENDORSED TO AM SHIFT NURSE IN STABLE CONDITION.
--- NOTE | 2019-10-03 07:22 | NUR ---
RECEIVED BEDSIDE REPORT FROM HARBOUR MASTER NURSE FOR CONTINUITY OF CARE. PATIENT IS AWAKE AND RESTING ON BED AT THIS TIME. PATIENT IS AAOX 4. RESPIRATION EVEN AND UNLABORED ON RA. DENIED PAIN, SOB AND DIZZINESS AT THIS TIME. NO SIGNS OF DISTRESS NOTED. IV ON LAC 22G, CLEAN AND INTACT, INFUSING PER MD ORDER. SCROTUM MINIMAL REDNESS,TIERRA, OTHERWISE SKIN CLEAN AND DRY. PATIENT IS CONTINENT AND ABLE TO AMBULATE WITH STEADY GAIT. DISCUSSED PLAN OF CARE WITH PATIENT ANT PATIENT SAID OK. SAFETY MEASURES IN PLACE. BED IN LOW POSITION AND CALL LIGHT WITHIN REACH. INSTRUCTED PATIENT TO USE THE CALL LIGHT FOR ANY ASSISTANCE AND PATIENT WAS AWARE.
[2019-10-03 08:00] VITALS: BP 135/77
[2019-10-03] MEDS: TAMSULOSIN 0.4 MG CAP PO SCH (09:43)
--- NOTE | 2019-10-03 09:43 | NUR ---
MEDICATION ADMINISTERED. NO COMPLICATIONS AT THIS TIME. TOLERATED WELL. SITTING AT BEDSIDE. BED IN LOW POSITION CALL LIGHT WITHIN REACH.
--- NOTE | 2019-10-03 11:14 | NUR ---
Grain Processor Assessment/Discharge Plan: Name: Oralia Villegas Home Relationship: Pre-Admission Living Arrangements: Lives with Other Other: Oralia Villegas Prior ADL Independent Current Home Health Name/Tel: N/A Current DME/02 Name/Tel: N/A Current Hospice Name/Tel: N/A Current Dialysis Name/Tel: N/A Healthcare Decision Maker: Patient Advance Directive No Information Taught: Advance Directive Person Taught: Patient Teaching Tools: Computer Generated Print Verbal Factors Affecting Learning: None Participation Level: Active Evaluation: Gestures Understanding Verbalizes Understanding Educator: MANNY Ureña Discipline: Case Mgt/Social Svcs Tentative Discharge Plan Summary: Patient is a 73 year old male admitted for pyelonephritis. I met with patient at bedside. Patient alert and oriented x4. Patient speaks Greenlandic. Patient lives at home with his Oralia Villegas and plans to return home upon discharge. Patient's pcp is [facility] and does not have any difficulty filling his prescriptions at pharmacy. Patient is independent with ADLs and does not use any DME at home. Patient drives to pcp's office. Patient denied hx of mental health. Patient also denied alcohol/substance abuse. Grain Processor and/or Pharmacogeneticist will follow up as needed. Signature: MANNY Ureña Date: Oct 03, 2019
--- NOTE | 2019-10-03 11:23 | NUR ---
PATIENT AWAKE AND RESTING ON BED AT THIS TIME. DENIED PAIN, SOB AND DIZZINESS. NO SIGNS OF DISTRESS NOTED. SAFETY MEASURES IN PLACE. BED IN LOW POSITION AND CALL LIGHT WITHIN REACH. INSTRUCTED PATIENT TO USE THE CALL LIGHT FOR ANY ASSISTANCE AND PATIENT WAS AWARE.
[2019-10-03] MEDS ORDERED: CLIN300C5 PO (11:26)
--- NOTE | 2019-10-03 11:45 | NUR ---
INFORMED PATIENT THAT HE WILL BE DC FROM HOSPITAL TODAY. PATIENT WAS AWARE AND WILL CONTACT FOR TAXONOMY TEACHER. PATIENT IS RESTING ON BED AT THIS TIME.NO SIGNS OF DISTRESS NOTED.
--- NOTE | 2019-10-03 13:48 | NUR ---
ADMINISTERED MED VIA IVPB PER MD ORDER, MED EDUCATION PROVIDED TO PATIENT AND PATIENT SAID OK. PATIENT AWAKE AND RESTING ON BED. PER PATIENT, HIS IS ON THE WAY TO PICK HIM AND MIGHT BE HERE AROUND 2PM. NO SIGNS OF DISTRESS NOTED. SAFETY MEASURES IN PLACE.
[2019-10-03] MEDS ORDERED: PNEUMOCOCCAL VACCINE 23 MCG/0.5 ML VIAL IMVAC SCH (15:00)
--- NOTE | 2019-10-03 15:14 | NUR ---
ADMINISTERED PNA VACCINE VIA IM ON L DELTOID. VACCINE EDUCATION PROVIDED TO PATIENT AND PATIENT VERBALIZED OK. PATIENT IS CHANGING INTO HIS OWN CLOTHES AT THIS TIME. HUSSEIN BY BEDSIDE. NO SIGNS OF DISTRESS NOTED.
--- NOTE | 2019-10-03 15:40 | NUR ---
DISCHARGE INSTRUCTION PROVIDED TO PATIENT AND PATIENT'S HUSSEIN AT BEDSIDE. EDUCATED PATIENT ON FOLLOW UP WITH MD, MEDICATIONS REGIMEN, SIDE EFFECTS, DISEASE MANAGEMENT, AND DIET. ANSWERED ALL PATIENT'S AND HUSSEIN'S QUESTIONS, ALL VERBALIZED UNDERSTANDING. PATIENT WAS AWARE THAT HIS PRESCRIPTION WAS SEND TO HIS PREFERRED PHARMACY. PATIENT AND HUSSEIN CHECKED ALL CABINETS AND TOOK ALL BELONGINGS HOME. REMOVED IV, CANNULA INTACT. REMOVED ALL ARM BANDS. PER PATIENT, HE IS UP TO DATE WITH HIS PNA AND FLU VACCINES. PATIENT CHANGED INTO HIS OWN CLOTHES. PATIENT DISCHARGED VIA WHEELCHAIR WITH HUSSEIN AT HIS SIDE.
--- NOTE | 2019-10-04 13:13 | NUR ---
Late entry. Confirmed with RN that 100ml/hr 0.9 NS IV completed at 1800. Clindamycin IVPB completed at 1420.
== END 2019-10-03 15:35 | disposition home or self-care (01) | DRG 728 ==
LOC: MED 10:29 → MMU 15:28
PROVIDERS: ADMIT Internal Medicine Pulmonary Disease; ATTEND Internal Medicine Pulmonary Disease
PROC: 3E0234Z Introduction of Serum, Toxoid and Vaccine into Muscle, Percutaneous Approach (ICD-10-PCS; principal; 2019-10-03)
DX: N49.2 Inflammatory disorders of scrotum (principal); L03.315 Cellulitis of perineum; L02.215 Cutaneous abscess of perineum; N40.0 Benign prostatic hyperplasia without lower urinary tract symptoms; N21.0 Calculus in bladder; E66.9 Obesity, unspecified; J44.9 Chronic obstructive pulmonary disease, unspecified; F17.200 Nicotine dependence, unspecified, uncomplicated; N20.9 Urinary calculus, unspecified; N41.9 Inflammatory disease of prostate, unspecified; Z85.528 Personal history of other malignant neoplasm of kidney; Z68.38 Body mass index [BMI] 38.0-38.9, adult; Z23 Encounter for immunization
CPT/HCPCS: 36415; 80053; 81001; 82150; 83605; 83690; 84153; 84484; 85025; 87040; 87070; 87075; 87081; 87086; 90732; 93005; 96361; 96365; 96367; 96375; 99285; J1580; J1885; J2270; J3490; J7030; J7060

== ENCOUNTER 2024-03-25 11:17 | Emergency (ER) | payer OTHER ==
[~2024-03-25] VITALS: Ht 167.6 cm; Wt 97.1 kg
[~2024-03-25 11:17] MED LIST changes: -ALBU-71 NEB; -ATRN INH; +CLIN300C73 PO; -CODE118S2 PO; -DOXY-441 PO; -OMEP40EC24 PO; -PRED10TA5 PO; +TAMS0.4C96 PO
[2024-03-25 11:20] VITALS: BP 135/69; PULSE 89; RESP 18; TEMP 97.8; O2SAT 96
[2024-03-25] MEDS ORDERED: ERYT5OIN51 LEFT EYE (12:11)
[2024-03-25] MEDS ORDERED: ACET-10509 PO (12:11)
== END 2024-03-25 12:22 | disposition home or self-care (01) ==
LOC: MED 11:17
DX: H00.015 Hordeolum externum left lower eyelid (principal); Z79.899 Other long term (current) drug therapy
CPT/HCPCS: 99283